=== PATIENT | female | born 1965 | race Asian ===

== ENCOUNTER 2016-11-01 12:49 | Emergency (ER) | payer OTHER ==
[~2016-11-01] VITALS: Ht 154.9 cm; Wt 54.5 kg
[~2016-11-01 12:49] MED LIST: DIABETIC MEDS PO
[2016-11-01] MEDS ORDERED: METF500T4 PO (13:07)
[2016-11-01 13:12] LABS: GLUCOSE,POINT OF CARE 401 MG/DL (70-110)
[2016-11-01] MEDS ORDERED: INSULIN REGULAR, HUMAN 100 UNITS/ML IVP ONE (14:30)
[2016-11-01] MEDS ORDERED: SODIUM CHLORIDE 0.9% 1,000 ML IV ONE (14:30)
[2016-11-01 15:10] LABS: ANION GAP 7 mmol/L (8-16); BASOPHILS % (AUTO) 0.5 % (0.0-2.0); CALCIUM, TOTAL 9.2 mg/dL (8.8-10.5); CARBON DIOXIDE 29 mmol/L (22-29); CHLORIDE 101 mmol/L (98-107); EOSINOPHILS % (AUTO) 1.3 % (1.0-6.0); GLOMERULAR FILTR. RATE CALC > 60 mL/min (>60); HEMATOCRIT 38.5 % (36-46); LYMPHOCYTES # (AUTO) 2.2 K/uL (1.0-4.8); LYMPHOCYTES % (AUTO) 35.3 % (22.0-44.0); MEAN CORPUSCULAR HEMOGLOBIN 28.5 pg (26.0-34.0); MEAN CORPUSCULAR HGB CONC 33.6 G/dL (31.0-37.0); MEAN CORPUSCULAR VOLUME 85 fL (80-100); MONOCYTES # (AUTO) 0.3 K/uL (0.1-1.0); MONOCYTES % (AUTO) 5.5 % (2.0-9.0); NEUTROPHILS # (AUTO) 3.6 K/uL (1.8-7.7); NEUTROPHILS % (AUTO) 57.4 % (40.0-70.0); PLATELET COUNT (AUTO) 432 K/uL (150-450); POTASSIUM 3.6 mmol/L (3.5-5.1); RED BLOOD CELL COUNT(AUTO) 4.55 MIL/uL (4.00-5.20); RED CELL DISTRIBUTION WIDTH 14.4 % (11.5-14.5); SODIUM SERUM 137 mmol/L (136-145); UREA NITROGEN, BLOOD 9 mg/dL (7-18); WHITE BLOOD COUNT (AUTO) 6.3 K/uL (4.5-11.0)
[2016-11-01 16:23] LABS: GLUCOSE COMMENT 1 Received Meds; GLUCOSE COMMENT 2 Doctor Notified; GLUCOSE,POINT OF CARE 199 MG/DL (70-110)
[2016-11-01 16:57] VITALS: BP 96/64
== END 2016-11-01 17:23 | disposition home or self-care (01) ==
LOC: EMS 12:57
DX: N93.9 Abnormal uterine and vaginal bleeding, unspecified (principal); E11.65 Type 2 diabetes mellitus with hyperglycemia; Z79.4 Long term (current) use of insulin
CPT/HCPCS: 36415; 76856; 80048; 82962; 84703; 85025; 96361; 96374; 99285; J1815; J7030

== ENCOUNTER 2022-01-10 18:00 | Inpatient (IN) | payer OTHER ==
[~2022-01-10] VITALS: Ht 152.4 cm; Wt 61.4 kg
[~2022-01-10 18:00] MED LIST changes: +METF-1211 PO
[2022-01-10] MEDS ORDERED: 0.9% SODIUM CHLORIDE 10 ML SYRINGE IVP PRN (18:15)
[2022-01-10 18:24] LABS: BASOPHILS % (AUTO) 0.2 % (0.0-2.0); EOSINOPHILS % (AUTO) 0.2 % (1.0-6.0); HEMATOCRIT 40.9 % (36-46); HEMOGLOBIN 13.7 g/dL (12.0-16.0); LYMPHOCYTES # (AUTO) 0.5 K/uL (1.0-4.8); LYMPHOCYTES % (AUTO) 11.4 % (22.0-44.0); MEAN CORPUSCULAR HEMOGLOBIN 29.6 pg (26.0-34.0); MEAN CORPUSCULAR HGB CONC 33.4 G/dL (31.0-37.0); MEAN CORPUSCULAR VOLUME 89 fL (80-100); MONOCYTES # (AUTO) 0.1 K/uL (0.1-1.0); MONOCYTES % (AUTO) 2.8 % (2.0-9.0); NEUTROPHILS # (AUTO) 4.1 K/uL (1.8-7.7); PLATELET COUNT (AUTO) 175 K/uL (150-450); RED BLOOD CELL COUNT(AUTO) 4.62 MIL/uL (4.00-5.20); RED CELL DISTRIBUTION WIDTH 13.2 % (11.5-14.5)
[2022-01-10 18:27] LABS: NEUTROPHILS % (AUTO) 85.4 % (40.0-70.0)
[2022-01-10 18:36] LABS: ANION GAP 11 mmol/L (8-16); CALCIUM, TOTAL 9.5 mg/dL (8.8-10.5); CARBON DIOXIDE 23 mmol/L (22-29); CHLORIDE 97 mmol/L (98-107); CREATININE 1.24 mg/dL (0.60-1.30); GLUCOSE,RANDOM 369 mg/dL (70-110); POTASSIUM 4.4 mmol/L (3.5-5.1); PROTHROMBIN TIME 10.7 SEC (9.4-11.6); SODIUM SERUM 131 mmol/L (136-145); UREA NITROGEN, BLOOD 14 mg/dL (7-18)
[2022-01-10 18:38] LABS: GLOMERULAR FILTR. RATE CALC 44 mL/min (>60)
[2022-01-10 18:41] LABS: ALANINE AMINOTRANSFERASE 29 U/L (12-78); ALBUMIN 3.1 g/dL (3.4-5.0); ALKALINE PHOSPHATASE 103 U/L (46-116); ASPARTATE AMINOTRANSFERASE 19 U/L (15-37); BILIRUBIN,TOTAL 0.9 mg/dL (0.1-1.0); TOTAL PROTEIN, SERUM 7.9 g/dL (6.4-8.2)
[2022-01-10 18:52] LABS: LACTIC ACID 3.6 mmol/L (0.4-2.0)
[2022-01-10] MEDS ORDERED: PIPERACILLIN/TAZO 3.375 GM/D5W 50 ML IV ONE (19:00)
[2022-01-10] MEDS ORDERED: SODIUM CHLORIDE 0.9% 2,000 ML IV ONE (19:00)
[2022-01-10 19:01] LABS: APPEARANCE,URINE HAZY (CLEAR); BILIRUBIN,URINE NEGATIVE (NEGATIVE); GLUCOSE, URINE (UA) >=1000 mg/dL (NEGATIVE); LEUKOCYTE ESTERASE ,URINE SMALL (NEGATIVE); NITRATE,URINE POSITIVE (NEGATIVE); OCCULT BLOOD,URINE MODERATE (NEGATIVE); PH,URINE 5.5 (5.0-8.0); PROTEIN,URINE 30-70 mg/dL (NEGATIVE); SPECIFIC GRAVITIY, URINE 1.014 (1.003-1.030); UROBILINOGEN,URINE <=1.0 mg/dL (<=1.0)
[2022-01-10 19:35] LABS: BACTERIA,URINE Many /HPF (None Seen); SQUAMOUS EPITHELIAL CELL,UR None Seen /LPF (None Seen)
[2022-01-10] MEDS ORDERED: ACETAMINOPHEN 650 MG/ISO-OSM 65 ML IV ONE (20:00)
[2022-01-10 21:01] LABS: COVID AG,FIA SOURCE NASAL SWAB
[2022-01-10] MEDS ORDERED: DEXTROSE 50%-WATER 25 GM/50 ML SYRINGE IVP PRN (21:45)
[2022-01-10] MEDS ORDERED: ONDANSETRON HCL 4 MG/2 ML VIAL IVP PRN (21:45)
[2022-01-10] MEDS ORDERED: SODIUM CHLORIDE 0.9% 100 ML ONE (21:46)
[2022-01-10] MEDS ORDERED: IOHEXOL 300 MG/ML 100 ML VIAL ONE (21:46)
[2022-01-10] MEDS: RINGERS SOLUTION,LACTATED 1,000 ML IV SCH (23:02)
[2022-01-10] MEDS: HEPARIN SODIUM,PORCINE 5,000 UNITS/ML VIAL SQ SCH (23:15)
[2022-01-10 23:45] VITALS: BP 100/51
[2022-01-11 03:54] VITALS: BP 106/55
[2022-01-11] MEDS: PIPERACILLIN/TAZO 3.375 GM/D5W 50 ML IV SCH ×4 (04:56→21:16)
[2022-01-11] MEDS: ACETAMINOPHEN 325 MG TABLET PO PRN ×2 (05:08→17:55)
[2022-01-11] MEDS: RINGERS SOLUTION,LACTATED 1,000 ML IV SCH ×2 (05:33→21:45)
[2022-01-11] MEDS: INSULIN LISPRO 100 UNITS/ML SQ PRN ×3 (05:37→18:13)
[2022-01-11] MEDS: HEPARIN SODIUM,PORCINE 5,000 UNITS/ML VIAL SQ SCH ×2 (08:00→08:34)
[2022-01-11 08:01] VITALS: BP 92/61
[2022-01-11] MEDS ORDERED: SODIUM CHLORIDE 0.9% 250 ML IV ONE (08:40)
[2022-01-11 08:42] LABS: HEMATOCRIT 35.2 % (36-46); HEMOGLOBIN 11.7 g/dL (12.0-16.0); MEAN CORPUSCULAR HEMOGLOBIN 29.5 pg (26.0-34.0); MEAN CORPUSCULAR HGB CONC 33.1 G/dL (31.0-37.0); MEAN CORPUSCULAR VOLUME 89 fL (80-100); PLATELET COUNT (AUTO) 124 K/uL (150-450); RED BLOOD CELL COUNT(AUTO) 3.95 MIL/uL (4.00-5.20); RED CELL DISTRIBUTION WIDTH 13.1 % (11.5-14.5)
[2022-01-11 09:01] LABS: CALCIUM, TOTAL 8.7 mg/dL (8.8-10.5); CREATININE 1.03 mg/dL (0.60-1.30); POTASSIUM 3.8 mmol/L (3.5-5.1)
[2022-01-11 09:42] LABS: BAND NEUTROPHILS % (MANUAL) 20 % (0-5); BASOPHILS % (MANUAL) 1 % (0-2); LYMPHOCYTES % (MANUAL) 13 % (22-44); MONOCYTES % (MANUAL) 8 % (2-9); SEGMENTED NEUTROPHILS % 58 % (40-70)
[2022-01-11 15:09] VITALS: BP 97/61
[2022-01-11] MEDS: MetFORMIN HCL 500 MG TABLET PO SCH (17:54)
[2022-01-11 19:53] VITALS: BP 135/50
[2022-01-12 00:16] VITALS: BP 102/64
[2022-01-12] MEDS: PIPERACILLIN/TAZO 3.375 GM/D5W 50 ML IV SCH ×4 (04:15→20:24)
[2022-01-12 05:27] VITALS: BP 97/54
[2022-01-12] MEDS: RINGERS SOLUTION,LACTATED 1,000 ML IV SCH ×3 (05:45→19:46)
[2022-01-12] MEDS: ACETAMINOPHEN 325 MG TABLET PO PRN ×3 (05:59→20:25)
[2022-01-12] MEDS: INSULIN LISPRO 100 UNITS/ML SQ PRN ×3 (06:05→19:33)
[2022-01-12 07:43] VITALS: BP 96/50
[2022-01-12] MEDS: MetFORMIN HCL 500 MG TABLET PO SCH ×2 (09:04→19:32)
[2022-01-12 11:27] VITALS: BP 114/63
[2022-01-12] MEDS ORDERED: SODIUM CHLORIDE 0.9% 250 ML IV ONE (16:01)
[2022-01-12 16:16] VITALS: BP 101/66
[2022-01-12 20:46] VITALS: BP 118/83
[2022-01-13] VITALS (7 sets, daily range): BP systolic 105–128; BP diastolic 59–92
[2022-01-13] MEDS: PIPERACILLIN/TAZO 3.375 GM/D5W 50 ML IV SCH ×4 (02:25→21:03)
[2022-01-13] MEDS: ACETAMINOPHEN 325 MG TABLET PO PRN ×2 (05:46→14:01)
[2022-01-13] MEDS: RINGERS SOLUTION,LACTATED 1,000 ML IV SCH ×4 (05:46→22:02)
[2022-01-13] MEDS: INSULIN LISPRO 100 UNITS/ML SQ PRN ×4 (06:02→21:05)
[2022-01-13] MEDS: MetFORMIN HCL 500 MG TABLET PO SCH ×2 (09:09→21:03)
[2022-01-13] MEDS ORDERED: ATOR20TA65 PO (11:01)
[2022-01-13] MEDS ORDERED: LISI2.5T13 PO (11:01)
[2022-01-13] MEDS ORDERED: PIOG45TA64 PO (11:01)
[2022-01-13] MEDS ORDERED: OMEP20CA12 PO (11:01)
[2022-01-13] MEDS ORDERED: GLIP5TAB11 PO (11:01)
[2022-01-14] MEDS: PIPERACILLIN/TAZO 3.375 GM/D5W 50 ML IV SCH ×4 (02:20→21:08)
[2022-01-14 04:22] VITALS: BP 113/60
[2022-01-14] MEDS: INSULIN LISPRO 100 UNITS/ML SQ PRN ×3 (06:07→17:56)
[2022-01-14] MEDS: RINGERS SOLUTION,LACTATED 1,000 ML IV SCH ×3 (06:15→23:57)
[2022-01-14 07:55] VITALS: BP 124/68
[2022-01-14] MEDS: MetFORMIN HCL 500 MG TABLET PO SCH ×2 (08:09→17:49)
[2022-01-14 11:58] VITALS: BP 122/72
[2022-01-14 16:05] VITALS: BP 129/96
[2022-01-14 19:46] VITALS: BP 138/79
[2022-01-14] MEDS: ACETAMINOPHEN 325 MG TABLET PO PRN (21:09)
[2022-01-14 23:34] VITALS: BP 119/84
[2022-01-15] MEDS: PIPERACILLIN/TAZO 3.375 GM/D5W 50 ML IV SCH ×2 (03:08→08:43)
[2022-01-15 03:32] VITALS: BP 117/62
[2022-01-15 07:49] VITALS: BP 119/67
[2022-01-15] MEDS: MetFORMIN HCL 500 MG TABLET PO SCH (08:42)
[2022-01-15] MEDS: RINGERS SOLUTION,LACTATED 1,000 ML IV SCH (08:48)
[2022-01-15] MEDS ORDERED: LEVO-72 PO (10:49)
[2022-01-15] MEDS: INSULIN LISPRO 100 UNITS/ML SQ PRN (11:49)
[2022-01-16 11:01] LABS: GLUCOMETER DEV NAME(LOC) 5S.1B; GLUCOSE,POINT OF CARE 163 MG/DL (70-110)
[2022-01-16 11:01] LABS: GLUCOMETER DEV NAME(LOC) 5S.1B; GLUCOSE,POINT OF CARE 240 MG/DL (70-110)
[2022-01-16 11:01] LABS: GLUCOMETER DEV NAME(LOC) 5S.2B; GLUCOSE,POINT OF CARE 144 MG/DL (70-110)
[2022-01-16 11:01] LABS: GLUCOMETER DEV NAME(LOC) 5S.2B; GLUCOSE,POINT OF CARE 162 MG/DL (70-110)
[2022-01-16 11:01] LABS: GLUCOMETER DEV NAME(LOC) 5S.2B; GLUCOSE,POINT OF CARE 196 MG/DL (70-110)
[2022-01-16 11:01] LABS: GLUCOMETER DEV NAME(LOC) 5S.1B; GLUCOSE,POINT OF CARE 196 MG/DL (70-110)
[2022-01-16 11:01] LABS: GLUCOMETER DEV NAME(LOC) 5S.2B; GLUCOSE,POINT OF CARE 184 MG/DL (70-110)
[2022-01-16 11:01] LABS: GLUCOMETER DEV NAME(LOC) 5N.3; GLUCOSE,POINT OF CARE 130 MG/DL (70-110)
[2022-01-16 11:01] LABS: GLUCOMETER DEV NAME(LOC) 5S.2B; GLUCOSE,POINT OF CARE 245 MG/DL (70-110)
[2022-01-16 11:01] LABS: GLUCOMETER DEV NAME(LOC) 5S.2B; GLUCOSE,POINT OF CARE 146 MG/DL (70-110)
[2022-01-16 17:22] LABS: GLUCOMETER DEV NAME(LOC) 5N.1C; GLUCOSE,POINT OF CARE 278 MG/DL (70-110)
[2022-01-16 17:22] LABS: GLUCOMETER DEV NAME(LOC) 5N.1C; GLUCOSE,POINT OF CARE 186 MG/DL (70-110)
[2022-01-16 17:23] LABS: GLUCOMETER DEV NAME(LOC) 5N.1C; GLUCOSE,POINT OF CARE 158 MG/DL (70-110)
[2022-01-16 17:23] LABS: GLUCOMETER DEV NAME(LOC) 5N.1C; GLUCOSE,POINT OF CARE 225 MG/DL (70-110)
[2022-01-16 17:24] LABS: GLUCOMETER DEV NAME(LOC) 5N.1C; GLUCOSE,POINT OF CARE 207 MG/DL (70-110)
[2022-01-18 05:33] LABS: GLUCOMETER DEV NAME(LOC) 5N.3; GLUCOSE,POINT OF CARE 179 MG/DL (70-110)
== END 2022-01-15 13:15 | disposition home or self-care (01) | DRG 872 ==
LOC: EMS 18:00 → EDUNIT# 18:00 → 5S 21:39
PROVIDERS: ADMIT Internal Medicine; ATTEND Internal Medicine
DX: A41.9 Sepsis, unspecified organism (principal); E87.1 Hypo-osmolality and hyponatremia; N13.6 Pyonephrosis; E11.65 Type 2 diabetes mellitus with hyperglycemia; Z20.822 Contact with and (suspected) exposure to COVID-19; B96.20 Unspecified Escherichia coli [E. coli] as the cause of diseases classified elsewhere; Z87.442 Personal history of urinary calculi
CPT/HCPCS: 71045; 74177; 80048; 80053; 81001; 82962; 83605; 83735; 85025; 85610; 87040; 87077; 87086; 87186; 87205; 93005; 99291; J0131; J1644; J2543; J7030; J7050; J7120; Q9967; 36415-L1; 36415-TC